=== PATIENT | female | born 1985 | race Caucasian/White ===

== ENCOUNTER 2017-09-22 17:46 | Emergency (ER) | payer BC, OTHER ==
[~2017-09-22] VITALS: Ht 175.3 cm; Wt 74.4 kg
[~2017-09-22 17:46] MED LIST: ACHYD1T PO; CITA40TA19 PO; CLC500CT PO; CTLP20T PO; DCS100C PO; DOCU100C37 PO; FAMO-119 PO; IBP800T PO; IBUP-1780 PO; ONDA8TAB9 PO; OXYC-465 PO; PREN1TAB71 PO
[2017-09-22] MEDS ORDERED: CITA20TA12 PO (18:05)
[2017-09-22] MEDS ORDERED: RT-ALBUTEROL SULF 2.5 MG/3 ML PRE-MIX VIAL INH STA (18:20)
[2017-09-22 18:33] LABS: BASOPHILS % (AUTO) 0 % (0-10); EOSINOPHILS % (AUTO) 0 % (0-10); HEMATOCRIT 32 % (35-52); HEMOGLOBIN 11.3 G/DL (11.5-16.0); LYMPHOCYTES # (AUTO) 1.4 X 10^3 (1.0-4.0); LYMPHOCYTES % (AUTO) 14 % (12-44); MEAN CORPUSCULAR HEMOGLOBIN 33 PG (25-34); MEAN CORPUSCULAR HGB CONC 35 G/DL (32-36); MEAN CORPUSCULAR VOLUME 93 FL (80-99); MONOCYTES # (AUTO) 0.8 X 10^3 (0.0-1.0); MONOCYTES % (AUTO) 8 % (0-12); NEUTROPHILS # (AUTO) 7.7 X 10^3 (1.8-7.8); NEUTROPHILS % (AUTO) 77 % (42-75); PLATELET COUNT 202 10^3/uL (130-400); RED BLOOD COUNT 3.47 10^6/uL (4.35-5.85)
--- NOTE | 2017-09-22 18:34 | ED General ---
General Chief Complaint: Respiratory Problems Stated Complaint: POSSIBLE PE, 34W Nursing Triage Note: PT REPORTS CHEST TIGHTNESS AND PAIN WITH INSPIRATION STARTING THURSDAY. PT REPORTS INITIALLY SHE THOUGHT SHE MIGHT BE GETTING A COLD. PT STATES SHE HAS SOA WITH EXERTION OR WALKING THAT SEEMS TO BE MORE THAN JUST NORMAL RELATED. PT REPORTS TODAY SHE CALLED DR KERNS OFFICE TODAY AND WAS TOLD TO GO TO ER TO GET CHECKED OUT. Nursing Sepsis Screen: No Definite Risk Source of Information: Patient Exam Limitations: No Limitations History of Present Illness Date Seen by Provider: Sep 22, 2017 Time Seen by Provider: 18:10 Initial Comments This 32-year-old woman at 34 weeks gestational age presents to the emergency room as referred by her general partner/industrial servicer for reasons of shortness of breath and chest discomfort on inspiration. She woke on Thursday feeling "achy in the chest". She developed shortness of breath and chest tightness with occasional cough. She also has a runny nose. She denies any fever. Thursday symptoms improved but then returned after that. She has dyspnea on exertion. She denies any history of lung problems such as asthma. Her discomfort is described as a tightness in his in the central chest. It is worsened by deep inspiration. She denies any wheezing. She has noted to have a raspy voice. She has had persistent edema of the lower extremities since about 23 weeks gestational age. This appears dependent and resolves when she lies down flat. The edema is equal and she denies any lower extremity pain, redness, heat. She notes a history of pericardial effusion after her last 4 years ago. She followed with Dr. Garcia for this pericardial effusion and had serial echocardiograms. She states that the effusion ultimately was inconsequential. Allergies and Home Medications Allergies Coded Allergies: Penicillins (Verified Allergy, Unknown, Hives, 05/03/15) Home Medications Citalopram Hydrobromide 20 Mg Tablet, 10 MG PO DAILY, (Reported) Nitrofurantoin Monohyd/M-Cryst 100 Mg Capsule, 1 TAB PO BID, #14 Prescribed by: BARBARA MARTÍNEZ on 09/22/172018 Vit/Fe Fumarate/Fa 1 Each Tablet, 1 EACH PO DAILY, (Reported) Constitutional: no symptoms reported EENTM: see HPI Respiratory: see HPI Cardiovascular: see HPI Gastrointestinal: no symptoms reported Genitourinary: no symptoms reported : Yes Musculoskeletal: no symptoms reported Skin: no symptoms reported Psychiatric/Neurological: No Symptoms Reported Hematologic/Lymphatic: No Symptoms Reported Immunological/Allergic: no symptoms reported Past Livleyr-Srvpwz-Yybbch Hx Patient Social History Alcohol Use: Denies Use Recreational Drug Use: No Smoking Status: Never a Smoker Recent Foreign Travel: No Contact w/Someone Who Travel: No Recent Infectious Disease Expo: No Immunizations Up To Date Tetanus Booster (TDap): Less than 5yrs PED Vaccines UTD: Yes Date of Influenza Vaccine: May 10, 2013 Surgeries History of Surgeries: Yes (Tubes in ears as , FILOPIAN TUBE REMOVED DUE TO TORSION) Respiratory History of Respiratory Disorde: No Cardiovascular History of Cardiac Disorders: Yes (history of pericardial effusion) Neurological History of Neurological Disord: No Reproductive System : Yes Hx Reproductive Disorders: No Sexually Transmitted Disease: No HIV/AIDS: No Female Reproductive Disorders: Ovarian Cyst Genitourinary History of Genitourinary Disor: Yes Genitourinary Disorders: UTI-Chronic Gastrointestinal History of Gastrointestinal Di: Yes Gastrointestinal Disorders: Gastroesophageal Reflux Musculoskeletal History of Musculoskeletal Dis: Yes Musculoskeletal Disorders: Scoliosis Endocrine History of Endocrine Disorders: No HEENT History of HEENT Disorders: No Cancer History of Cancer: No Psychosocial History of Psychiatric Problem: Yes Behavioral Health Disorders: Anxiety Integumentary History of Skin or Integumenta: No Blood Transfusions History of Blood Disorders: No Adverse Reaction to a Blood Tr: No Family Medical History Significant Family History: Hypertension, Other Conditions/Hx Family Medial History: Cancer Maternal Grandfather, Onset:50's - 60 Congestive heart failure Maternal Grandmother, Onset:60 years & older Family history: Diabetes mellitus Maternal Grandmother, Onset:60 years & older Family history: Gastrointestinal disease 03 FATHER, Onset:50's - 60 (Diverticulitis) Family history: Hypertension 03 FATHER, Onset:40's - 50 Paternal Grandmother Family history: Osteoporosis Maternal Grandmother Heart disease Maternal Grandmother (Has Pacemaker) Hypercholesterolemia 03 FATHER Paternal Grandmother No Family History of: Abdominal aortic aneurysm Conrad's disease Alcoholism Aphasia Cancer of colon Cataract Chest pain Congenital heart disease Cystic fibrosis Dementia Dysphagia Family history: Allergy Family history: Alzheimer's disease Family history: Arthritis Family history: Asthma Family history: Breast disease Family history: Cardiovascular disease Family history: Coronary thrombosis Family history: Glaucoma Family history: Thyroid disorder Headache Hearing loss Hereditary disease History of - anemia History of - respiratory disease History of drug abuse Human immunodeficiency virus (HIV) seropositivity Infertile Kidney disease Malignant neoplasm of lung Myocardial infarction Parkinson's disease Prostate cancer Psychotic disorder Seizure disorder Stroke Tuberculosis Visual impairment Physical Exam Vital Signs Vital Signs - First Documented 09/22/17 09/22/17 17:56 18:46 Temp 96.7 Pulse 80 Resp 20 B/P (MAP) 113/92 (99) Pulse Ox 100 O2 Delivery Room Air Capillary Refill : Less Than 3 Seconds General Appearance: No Apparent Distress, WD/WN HEENT: PERRL/EOMI, TMs Normal, Normal ENT Inspection, Pharynx Normal Neck: Normal Inspection Respiratory: Lungs Clear, Normal Breath Sounds, No Accessory Muscle Use, No Respiratory Distress, Other (no wheezing or delay with forced expiration) Cardiovascular: Regular Rate, Rhythm, No Edema, No Murmur Gastrointestinal: Normal Bowel Sounds, Soft, Distended (appropriately gravid for gestational age) Extremity: Non Tender, No Calf Tenderness, Swelling (mild edema equal bilaterally), Other (no heat, tenderness, or erythema. Negative Maggie.) Neurologic/Psychiatric: Alert, Oriented x3, No Motor/Sensory Deficits, Normal Mood/Affect, airplane inspector II-XII Norm as Tested Skin: Normal Color, Warm/Dry Progress/Results/Core Measures Suspected Sepsis Recent Fever Within 48 Hours: No Infection Criteria Present: None New/Unexplained Altered Menta: No Sepsis Screen: No Definite Risk Sepsis Diagnosis: SIRS Temperature:96.7 Pulse: 80 Respiratory Rate: 20 Laboratory Tests 09/22/17 18:19: White Blood Count 10.0 Blood Pressure 113 /92 Mean: 99 Laboratory Tests 09/22/17 18:19: Creatinine 0.60, Platelet Count 202, Total Bilirubin 0.6 Results/Orders Lab Results Laboratory Tests Test 09/22/17 18:19 09/22/17 19:19 Range/Units White Blood Count 10.0 4.3-11.0 10^3/uL Red Blood Count 3.47 L 4.35-5.85 10^6/uL Hemoglobin 11.3 L 11.5-16.0 G/DL Hematocrit 32 L 35-52 % Mean Corpuscular Volume 93 80-99 FL Mean Corpuscular Hemoglobin 33 25-34 PG Mean Corpuscular Hemoglobin Concent 35 32-36 G/DL Red Cell Distribution Width 13.0 10.0-14.5 % Platelet Count 202 130-400 10^3/uL Mean Platelet Volume 11.0 H 7.4-10.4 FL Neutrophils (%) (Auto) 77 H 42-75 % Lymphocytes (%) (Auto) 14 12-44 % Monocytes (%) (Auto) 8 0-12 % Eosinophils (%) (Auto) 0 0-10 % Basophils (%) (Auto) 0 0-10 % Neutrophils # (Auto) 7.7 1.8-7.8 X 10^3 Lymphocytes # (Auto) 1.4 1.0-4.0 X 10^3 Monocytes # (Auto) 0.8 0.0-1.0 X 10^3 Eosinophils # (Auto) 0.0 0.0-0.3 10^3/uL Basophils # (Auto) 0.0 0.0-0.1 10^3/uL Erythrocyte Sedimentation Rate 37 H 0-20 MM/HR Sodium Level 138 135-145 MMOL/L Potassium Level 3.9 3.6-5.0 MMOL/L Chloride Level 105 98-107 MMOL/L Carbon Dioxide Level 21 21-32 MMOL/L Anion Gap 12 5-14 MMOL/L Blood Urea Nitrogen 7 7-18 MG/DL Creatinine 0.60 0.60-1.30 MG/DL Estimat Glomerular Filtration Rate > 60 BUN/Creatinine Ratio 12 Glucose Level 71 70-105 MG/DL Calcium Level 9.7 8.5-10.1 MG/DL Magnesium Level 1.7 L 1.8-2.4 MG/DL Total Bilirubin 0.6 0.1-1.0 MG/DL Aspartate Amino Transf (AST/SGOT) 20 5-34 U/L Alanine Aminotransferase (ALT/SGPT) 15 0-55 U/L Alkaline Phosphatase 145 H 40-136 U/L C-Reactive Protein High Sensitivity 1.51 H 0.00-0.50 MG/DL B-Type Natriuretic Peptide < 10.0 <100.0 PG/ML Total Protein 6.5 6.4-8.2 GM/DL Albumin 3.3 3.2-4.5 GM/DL Urine Color YELLOW Urine Clarity CLEAR Urine pH 6.5 5-9 Urine Specific Baxter 1.015 L 1.016-1.022 Urine Protein NEGATIVE NEGATIVE Urine Glucose (UA) NEGATIVE NEGATIVE Urine Ketones 3+ H NEGATIVE Urine Nitrite NEGATIVE NEGATIVE Urine Bilirubin NEGATIVE NEGATIVE Urine Urobilinogen NORMAL NORMAL MG/DL Urine Leukocyte Esterase 2+ H NEGATIVE Urine RBC (Auto) NEGATIVE NEGATIVE Urine RBC NONE /HPF Urine WBC 5-10 H /HPF Urine Squamous Epithelial Cells 25-50 H /HPF Urine Crystals NONE /LPF Urine Bacteria FEW H /HPF Urine Casts NONE /LPF Urine Mucus NEGATIVE /LPF Urine Culture Indicated YES My Orders Orders - BARBARA MONTENEGRO MD BNP (09/22/17 18:20) Cbc With Automated Diff (09/22/17 18:20) Comprehensive Metabolic Panel (09/22/17 18:20) Hs C Reactive Protein (09/22/17 18:20) Magnesium (09/22/17 18:20) Ua Culture If Indicated (09/22/17 18:20) Erythrocyte Sedimentation Rate (09/22/17 18:20) Saline Lock/Iv-Start (09/22/17 18:20) Ekg Tracing (09/22/17 18:20) Chest Pa/Lat (2 View) (09/22/17 18:20) Albuterol Pre-Mix Nebs (Rt) (Proventil (09/22/17 18:20) Svn Sm Volume Nebulizer Rt-Rfs (09/22/17 18:20) Lidocaine 2% Viscous 15 Ml (Xylocaine Vi (09/22/17 19:30) Antacid Suspension (Mylanta Suspension (09/22/17 19:30) Urine Culture (09/22/17 19:19) Medications Given in ED Current Medications Medications Dose Ordered Sig/Jeannine Route Start Time Stop Time Status Last Admin Dose Admin Al Hydrox/Mg Hydrox/Simethicone 30 ml ONCE ONCE PO 09/22/17 19:30 09/22/17 19:31 DC 09/22/17 19:33 30 ML Lidocaine HCl 15 ml ONCE ONCE PO 09/22/17 19:30 09/22/17 19:31 DC 09/22/17 19:33 15 ML Vital Signs/I&O Vital Sign - Last 12Hours 09/22/17 09/22/17 09/22/17 17:56 18:46 20:28 Temp 96.7 96.7 Pulse 80 80 Resp 20 20 B/P (MAP) 113/92 (99) Pulse Ox 100 96 97 O2 Delivery Room Air Room Air Capillary Refill : Less Than 3 Seconds Blood Pressure Mean: 99 Progress Note : Progress Note Chest x-ray revealed no significant abnormalities. Labs were unremarkable except for minimal elevation in sedimentation rate. UA demonstrated ketones and subtle suggestion for UTI. Patient did report some discomfort with urination last week. Macrobid was prescribed for treatment of UTI. An albuterol treatment was given which minimally improved her chest tightness. Patient described problems with acid reflux and daily vomiting. She does take Pepcid most days. A GI cocktail was given which she states did help her chest tightness. EKG showed no significant abnormalities. I discussed further workup by d-dimer with patient and her . Suspicion for pulmonary embolus is very low as patient has no lower extremity exam findings consistent with DVT and no tachycardia or hypoxia. We discussed risks and benefits of further workup for pulmonary embolus. Patient and declined further workup at this time. They commits to returning if symptoms worsen. I suspect patient has a combination of URI and acid reflux contributing to her symptoms. ECG Initial ECG Impression Date: Sep 22, 2017 Initial ECG Impression Time: 18:53 Initial ECG Rate: 77 Initial ECG Rhythm: Normal Sinus Initial ECG Intervals: Normal Initial ECG Impression: Normal Comment Normal sinus rhythm with no ST elevation or depression. No abnormal intervals or axis deviation. Diagnostic Imaging Diagonstic Imaging: Xray Plain Films/CT/US/NM/MRI: chest Comments Chest x-ray viewed by me and report reviewed. See report below: NAME: SEEMA BELLE [facility] REC#: [id number] PT STATUS: REG ER : 1985 PHYSICIAN: BARBARA MONTENEGRO MD ADMIT DATE: 09/22/17/ER Draft Date of Exam:09/22/17 CHEST PA/LAT (2 VIEW) INDICATION: Chest tightness and pain during inspiration. TIME OF EXAM: 06:59 p.m. Correlation is made with prior study from 07/08/2013. FINDINGS: The heart size is stable. There is right convexity thoracic scoliotic curvature. The lungs are clear. No infiltrates are detected. No effusion or pneumothorax is seen. IMPRESSION: No acute cardiopulmonary process is detected. Dictated on workstation # [id number] Dict: 09/22/171901 Trans: 09/22/171904 [id number] Interpreted by: JAVI WESTNO MD Departure Impression Impression: Primary Impression: Chest discomfort Additional Impressions: GERD (gastroesophageal reflux disease) Qualified Codes: K21.9 - Gastro-esophageal reflux disease without esophagitis Upper respiratory infection Qualified Codes: J06.9 - Acute upper respiratory infection, unspecified Urinary tract infection Qualified Codes: N39.0 - Urinary tract infection, site not specified Disposition: HOME, SELF-CARE Condition: Improved Departure-Patient Inst. Referrals: XANDER SHEPARD MD (PCP) Primary Care Physician Patient Instructions: Chest Pain, Urinary Tract Infections in Adults Add. Discharge Instructions: Drink plenty of clear liquids. Complete your antibiotic as prescribed. Follow-up on urine culture results with Dr. Shepard or your primary care provider on Thursday. This will ensure you are taking an appropriate antibiotic for your bladder infection. Continue taking Pepcid twice daily. You may add Tums as well when you have heartburn. To reduce heartburn symptoms avoid the following: Eating large meals, eating close to bedtime, caffeine, carbonation, chocolate, mint, alcohol products, tobacco products, citrus fruits and juices, spicy foods, NSAID medications such as ibuprofen or naproxen, fatty or greasy foods, or anything else you know irritates your stomach. Elevating your head at bedtime may also help with acid reflux and heartburn. Continue to take Zofran as prescribed to reduce vomiting. Return to care if you have worsening symptoms. All discharge instructions reviewed with patient and/or family. Voiced understanding. Scripts Nitrofurantoin Monohyd/M-Cryst (Macrobid 100 mg Capsule) 100 Mg Capsule 1 TAB PO BID, #14 CAP Prov: BARBARA MONTENEGRO MD 09/22/17 Copy Copies To 1: XANDER SHEPARD MD, JOSHUA T MD Sep 22, 2017 18:34
[2017-09-22 18:47] LABS: ALANINE AMINOTRANSFERASE 15 U/L (0-55); ALBUMIN 3.3 GM/DL (3.2-4.5); ALKALINE PHOSPHATASE 145 U/L (40-136); BILIRUBIN,TOTAL 0.6 MG/DL (0.1-1.0); BUN/CREATININE RATIO 12; CALCIUM 9.7 MG/DL (8.5-10.1); CARBON DIOXIDE 21 MMOL/L (21-32); CHLORIDE 105 MMOL/L (98-107); GFR ESTIMATED > 60; GLUCOSE 71 MG/DL (70-105); MAGNESIUM 1.7 MG/DL (1.8-2.4); POTASSIUM 3.9 MMOL/L (3.6-5.0); SODIUM 138 MMOL/L (135-145); TOTAL PROTEIN 6.5 GM/DL (6.4-8.2)
[2017-09-22 18:57] LABS: ERYTHROCYTE SEDIMENTATION RATE 37 MM/HR (0-20)
--- NOTE | 2017-09-22 19:05 | Diagnostic Imaging Report ---
INDICATION: Chest tightness and pain during inspiration. TIME OF EXAM: 06:59 p.m. Correlation is made with prior study from 07/08/2013. FINDINGS: The heart size is stable. There is right convexity thoracic scoliotic curvature. The lungs are clear. No infiltrates are detected. No effusion or pneumothorax is seen. IMPRESSION: No acute cardiopulmonary process is detected. Dictated by: Dictated on workstation # [id number]
[2017-09-22 19:29] LABS: BILIRUBIN,URINE NEGATIVE (NEGATIVE); CLARITY,URINE CLEAR; COLOR,URINE YELLOW; GLUCOSE, URINE (UA) NEGATIVE (NEGATIVE); KETONES,URINE 3+ (NEGATIVE); LEUKOCYTE ESTERASE ,URINE 2+ (NEGATIVE); NITRITE,URINE NEGATIVE (NEGATIVE); PH,URINE 6.5 (5-9); PROTEIN,URINE NEGATIVE (NEGATIVE); UROBILINOGEN,URINE NORMAL (NORMAL)
[2017-09-22] MEDS ORDERED: LIDOCAINE 2% VISCOUS 15 ML UDC PO ONE (19:30)
[2017-09-22] MEDS ORDERED: ANTACID SUSP 30 ML UDC (MYLANTA) PO ONE (19:30)
[2017-09-22 19:37] LABS: BACTERIA,URINE FEW /HPF; SQUAMOUS EPITHELIAL CELL,UR 25-50 /HPF
[2017-09-22] MEDS ORDERED: NITR-65 PO (20:19)
[2017-09-22 20:28] VITALS: BP 114/80
--- OUTSIDE RECORDS SUMMARY | 2017-09-25 08:04 | XMS REPORT | Continuity of Care Document ---
Author Author [facility] Organization [facility] Address Unknown Phone Unavailable Allergies Active Description Code Type Severity Reaction Onset Reported/Identified Relationship to Patient Clinical Status Yes Penicillins [id number] Drug Allergy Unknown Hives 05/03/2015 Medications There is no data. Problems Date Dx Coded Attending Type Code Diagnosis Diagnosed By 07/06/2013 XANDER YEN MD, Ot 663.31 CORD ENTANGLE NEC-DELIV 07/06/2013 XANDER YEN MD, Ot V06.1 [id number], COMBINED [ 07/06/2013 XANDER YEN MD, Ot V27.0 DELIVER-SINGLE LIVEBORN 07/08/2013 JOSE SHANE MD Ot 300.00 ANXIETY STATE NOS 07/08/2013 JOSE SHANE MD Ot 785.1 PALPITATIONS 12/04/2014 GARRET DA SILVA MD Ot 300.00 12/04/2014 GARRET DA SILVA MD Ot 427.69 12/04/2014 GARRET DA SILVA MD Ot 785.1 12/04/2014 GARRET DA SILVA MD Ot 786.50 05/03/2015 XANDER YEN MD, Ot V22.2 PREG STATE, INCIDENTAL 05/03/2015 XANDER YEN MD, Ot V71.4 OBSERV-ACCIDENT NEC 06/23/2015 XANDER YEN MD, Ot O69.81X0 LABOR AND DEL COMP BY CORD AROUND NECK, 06/23/2015 XANDER YEN MD, Ot Z23 ENCOUNTER FOR IMMUNIZATION 06/23/2015 XANDER YEN MD, Ot Z37.0 SINGLE LIVE 06/23/2015 XANDER YEN MD, Ot Z3A.38 38 WEEKS GESTATION OF 06/25/2015 XANDER YEN MD, Ot 719.47 06/25/2015 XANDER YEN MD Ot 729.81 06/25/2015 REKHA HUSSEIN, GARRET Adam Ot 300.00 06/25/2015 REKHA HUSSEIN, GARRET Adam Ot 427.69 06/25/2015 REKHA HSUSEIN, GARRET Adam Ot 427.89 06/25/2015 REKHA HUSSEIN, GARRET Adam Ot 785.1 06/25/2015 GARRET DA SILVA MD Ot 786.50 06/25/2015 REKHA HUSSEIN, GARRET Adam Ot 397.0 06/25/2015 REKHA HUSSEIN, GARRET Adam Ot 424.0 06/25/2015 REKHA HUSSEIN, GARRET Adam Ot 427.69 06/25/2015 GARRET DA SILVA MD Ot 785.1 06/25/2015 GARRET DA SILVA MD Ot 786.50 06/25/2015 RIA PA, YEIMY K Ot 300.00 06/25/2015 RIA PA, YEIMY K Ot 397.0 06/25/2015 RIA PA, YEIMY K Ot 423.9 06/25/2015 RIA PA, YEIMY K Ot 424.0 06/25/2015 RIA PA, YEIMY K Ot 427.69 06/25/2015 RIA PA, YEIMY K Ot 785.1 06/25/2015 GARRET DA SILVA MD Ot 300.00 06/25/2015 GARRET DA SILVA MD Ot 427.69 06/25/2015 GARRET DA SILVA MD Ot 785.1 06/25/2015 GARRET DA SILVA MD Ot 786.50 11/21/2015 XANDER YEN MD Ot 719.47 11/21/2015 XANDER YEN MD Ot 729.81 11/21/2015 GRARET DA SILVA MD Ot 300.00 11/21/2015 GARRET DA SILVA MD Ot 427.69 11/21/2015 GARRET DA SILVA MD Ot 427.89 11/21/2015 GARRET DA SILVA MD Ot 785.1 11/21/2015 GARRET DA SILVA MD Ot 786.50 11/21/2015 GARRET DA SILVA MD Ot 397.0 11/21/2015 GARRET DA SILVA MD Ot 424.0 11/21/2015 REKHA HUSSEIN, GARRET Adam Ot 427.69 11/21/2015 GARRET DA SILVA MD Ot 785.1 11/21/2015 GARRET DA SILVA MD Ot 786.50 11/21/2015 RIA PA, YEIMY K Ot 300.00 11/21/2015 RIA PA, YEIMY K Ot 397.0 11/21/2015 RIA PA, YEIMY K Ot 423.9 11/21/2015 JIMENES-TYLER PA, YEIMY K Ot 424.0 11/21/2015 YUDY-TYELR PA, YEIMY K Ot 427.69 11/21/2015 YUDY-TYLER PA, YEIMY K Ot 785.1 11/21/2015 GARRET DA SILVA MD Ot 300.00 11/21/2015 GARRET DA SILVA MD Ot 427.69 11/21/2015 GARRET DA SILVA MD Ot 785.1 11/21/2015 GARRET DA SILVA MD Ot 786.50 11/25/2015 XANDER YEN MD Ot N83.52 TORSION OF FALLOPIAN TUBE 11/25/2015 XANDER YEN MD Ot N83.8 OTH NONINFLAMMATORY DISORD OF OVARY, FAL 11/26/2015 XANDER YEN MD Ot N83.52 TORSION OF FALLOPIAN TUBE 11/26/2015 XANDER YEN MD Ot N83.8 OTH NONINFLAMMATORY DISORD OF OVARY, FAL 11/27/2015 XANDER YEN MD Ot N83.52 TORSION OF FALLOPIAN TUBE 11/27/2015 XANDER YEN MD Ot N83.8 OTH NONINFLAMMATORY DISORD OF OVARY, FAL 12/01/2015 XANDER YEN MD Ot N83.52 TORSION OF FALLOPIAN TUBE 12/01/2015 XANDER YEN MD Ot N83.8 OTH NONINFLAMMATORY DISORD OF OVARY, FAL 12/03/2015 XANDER YEN MD Ot 719.47 JOINT PAIN-ANKLE 12/03/2015 XANDER YEN MD Ot 729.81 SWELLING OF LIMB 12/03/2015 GARRET DA SILVA MD Ot 300.00 ANXIETY STATE NOS 12/03/2015 GARRET DA SILVA MD Ot 427.69 PREMATURE BEATS NEC 12/03/2015 GARRET DA SILVA MD Ot 427.89 CARDIAC DYSRHYTHMIAS NEC 12/03/2015 GARRET DA SILVA MD Ot 785.1 PALPITATIONS 12/03/2015 GARRET DA SILVA MD Ot 786.50 CHEST PAIN NOS 12/03/2015 GARRET DA SILVA MD Ot 397.0 TRICUSPID VALVE DISEASE 12/03/2015 GARRET DA SILVA MD Ot 424.0 MITRAL VALVE DISORDER 12/03/2015 GARRET DA SILVA MD Ot 427.69 PREMATURE BEATS NEC 12/03/2015 GARRET DA SILVA MD Ot 785.1 PALPITATIONS 12/03/2015 GARRET DA SILVA MD Ot 786.50 CHEST PAIN NOS 12/03/2015 YEIMY RAJPUT Ot 300.00 ANXIETY STATE NOS 12/03/2015 YEIMY RAJPUT Ot 397.0 TRICUSPID VALVE DISEASE 12/03/2015 YEIMY RAJPUT Ot 423.9 PERICARDIAL DISEASE NOS 12/03/2015 YEIMY RAJPUT Ot 424.0 MITRAL VALVE DISORDER 12/03/2015 YEIMY RAJPUT Ot 427.69 PREMATURE BEATS NEC 12/03/2015 YEIMY RAJPUT Ot 785.1 PALPITATIONS 12/03/2015 GARRET DA SILVA MD Ot 300.00 ANXIETY STATE NOS 12/03/2015 GARRET DA SILVA MD Ot 427.69 PREMATURE BEATS NEC 12/03/2015 GARRET DA SILVA MD Ot 785.1 PALPITATIONS 12/03/2015 GARRET DA SILVA MD Ot 786.50 CHEST PAIN NOS 12/11/2015 XANDER YEN MD Ot N83.52 TORSION OF FALLOPIAN TUBE 12/11/2015 XANDER YEN MD Ot N83.8 OTH NONINFLAMMATORY DISORD OF OVARY, FAL 06/26/2016 XANDER YEN MD Ot 719.47 JOINT PAIN-ANKLE 06/26/2016 FARSHAD HUSSEIN, XANDER Dias Ot 729.81 SWELLING OF LIMB 06/26/2016 GARRET DA SILVA MD Ot 300.00 ANXIETY STATE NOS 06/26/2016 GARRET DA SILVA MD Ot 427.69 PREMATURE BEATS NEC 06/26/2016 GARRET DA SILVA MD Ot 427.89 CARDIAC DYSRHYTHMIAS NEC 06/26/2016 GARRET DA SILVA MD Ot 785.1 PALPITATIONS 06/26/2016 GARRET DA SILVA MD Ot 786.50 CHEST PAIN NOS 06/26/2016 GARRET DA SILVA MD Ot 397.0 TRICUSPID VALVE DISEASE 06/26/2016 GARRET DA SILVA MD Ot 424.0 MITRAL VALVE DISORDER 06/26/2016 GARRET DA SILVA MD Ot 427.69 PREMATURE BEATS NEC 06/26/2016 GARRET DA SILVA MD Ot 785.1 PALPITATIONS 06/26/2016 GARRET DA SILVA MD Ot 786.50 CHEST PAIN NOS 06/26/2016 YEIMY RAJPUT Ot 300.00 ANXIETY STATE NOS 06/26/2016 YEIMY RAJPUT Ot 397.0 TRICUSPID VALVE DISEASE 06/26/2016 YEIMY RAJPUT Ot 423.9 PERICARDIAL DISEASE NOS 06/26/2016 YEIMY RAJPUT Ot 424.0 MITRAL VALVE DISORDER 06/26/2016 YEIMY RAJPUT Ot 427.69 PREMATURE BEATS NEC 06/26/2016 YEIMY RAJPUT Ot 785.1 PALPITATIONS 06/26/2016 GARRET DA SILVA MD Ot 300.00 ANXIETY STATE NOS 06/26/2016 GARRET DA SILVA MD Ot 427.69 PREMATURE BEATS NEC 06/26/2016 GARRET DA SILVA MD Ot 785.1 PALPITATIONS 06/26/2016 GARRET DA SILVA MD Ot 786.50 CHEST PAIN NOS Procedures Code Description Performed By Performed On 73.4 MEDICAL INDUCTION LABOR 07/04/2013 73.59 MANUAL ASSIST DELIV NEC 07/04/2013 [id number] DELIVERY OF PRODUCTS OF CONCEPTION, EXTE 06/22/2015 Results There is no data. Encounters ACCT No. Visit Date/Time Discharge Status Pt. Type Provider Facility Loc./Unit Complaint [id number] 11/24/2015 20:40:00 11/25/2015 10:20:00 DIS Outpatient XANDER YEN MD [facility] SDC TORSION OF LEFT OVARY [id number] 06/22/2015 16:53:00 06/23/2015 08:45:00 DIS Inpatient XANDER YEN MD [facility] LDRP LABOR [id number] 05/03/2015 10:21:00 05/03/2015 15:26:00 DIS Outpatient XANDER YEN MD [facility] WSo PT FELL LAST NIGHT [id number] 11/16/2014 10:01:00 11/16/2014 23:59:59 CLS Outpatient GARRET DA SILVA MD [facility] CARD CP [id number] 03/15/2014 09:52:00 03/15/2014 23:59:59 CLS Outpatient YEIMY RAJPUT [facility] CARD PALPITATIONS ,ANXIETY [id number] 11/23/2013 09:40:00 11/23/2013 23:59:59 CLS Outpatient GARRET DA SILVA MD [facility] CARD ANXIETY,CP,PVC [id number] 08/16/2013 07:39:00 08/16/2013 23:59:59 CLS Outpatient GARRET DA SILVA MD [facility] CARD CP, CARDIAC DYSRHYTHMIAS , HEART PALPATATIONS [id number] 07/08/2013 15:55:00 07/08/2013 18:40:00 DIS Emergency JOSE SHANE MD [facility] ER RAPID HEART RATE [id number] 07/04/2013 06:59:00 07/06/2013 11:00:00 DIS Inpatient XANDER YEN MD [facility] WS INDUCTION [id number] 03/17/2013 13:57:00 03/17/2013 23:59:59 CLS Outpatient XANDER YEN MD [facility] RAD RT ANKLE PAIN, BILAT LOWER EXT SWELLING [id number] 05/03/2015 14:05:00 Document Registration
== END 2017-09-22 20:27 | disposition home or self-care (01) ==
LOC: EDUNIT# 17:46 → ER 17:47
DX: O99.89 Other specified diseases and conditions complicating pregnancy, childbirth and the puerperium (principal); R07.89 Other chest pain; O99.513 Diseases of the respiratory system complicating pregnancy, third trimester; J06.9 Acute upper respiratory infection, unspecified; O23.40 Unspecified infection of urinary tract in pregnancy, unspecified trimester; O99.613 Diseases of the digestive system complicating pregnancy, third trimester; K21.9 Gastro-esophageal reflux disease without esophagitis; O99.343 Other mental disorders complicating pregnancy, third trimester; F41.9 Anxiety disorder, unspecified; Z82.49 Family history of ischemic heart disease and other diseases of the circulatory system; Z3A.34 34 weeks gestation of pregnancy; Z88.0 Allergy status to penicillin; Z87.448 Personal history of other diseases of urinary system
CPT/HCPCS: 36415; 71046; 80053; 81000; 83735; 83880; 85025; 85652; 86141; 87088; 93005; 94640

== ENCOUNTER 2017-10-30 07:00 | Inpatient (IN) | payer OTHER ==
[~2017-10-30] VITALS: Ht 175.3 cm; Wt 70.3 kg
[2017-10-30] VITALS (37 sets, daily range): BP systolic 101–129; BP diastolic 58–81
[~2017-10-30 07:00] MED LIST changes: +CITA20TA12 PO; +NITR-65 PO
[2017-10-30] MEDS ORDERED: D5 LR IV SOLUTION 1,000 ML IV SCH ×2 (07:57→08:13)
[2017-10-30 08:06] LABS: BASOPHILS % (AUTO) 0 % (0-10); EOSINOPHILS # (AUTO) 0.1 10^3/uL (0.0-0.3); EOSINOPHILS % (AUTO) 1 % (0-10); HEMATOCRIT 35 % (35-52); LYMPHOCYTES # (AUTO) 1.7 X 10^3 (1.0-4.0); LYMPHOCYTES % (AUTO) 17 % (12-44); MEAN CORPUSCULAR HEMOGLOBIN 33 PG (25-34); MEAN CORPUSCULAR HGB CONC 35 G/DL (32-36); MEAN CORPUSCULAR VOLUME 94 FL (80-99); MEAN PLATELET VOLUME 11.4 FL (7.4-10.4); MONOCYTES # (AUTO) 0.7 X 10^3 (0.0-1.0); MONOCYTES % (AUTO) 7 % (0-12); NEUTROPHILS # (AUTO) 7.2 X 10^3 (1.8-7.8); NEUTROPHILS % (AUTO) 75 % (42-75); PLATELET COUNT 202 10^3/uL (130-400); RED BLOOD COUNT 3.68 10^6/uL (4.35-5.85); RED CELL DISTRIBUTION WIDTH 13.1 % (10.0-14.5); WHITE BLOOD COUNT 9.6 10^3/uL (4.3-11.0)
[2017-10-30] MEDS ORDERED: OXYTOCIN/NORMAL SALINE 500 ML IV SCH ×3 (08:11→08:14)
--- NOTE | 2017-10-30 08:13 | History & Physical ---
History and Physical Date Seen by Provider: Oct 30, 2017 Time Seen by Provider: 08:10 This patient is a 35-year-old white female with a due date of November 02, 2017 pressing her now at 39-4/7 weeks' gestation. She is admitted for labor induction. She's had no problems with this . Her GBS culture was negative. Allergies are to Macrobid which causes a rash Medications are vitamins and Zofran when necessary Medical social and surgical histories are per the antepartum record HEENT exam is normal Neck is supple no lymphadenopathy no thyromegaly Abdomen is gravid soft nontender nondistended Extremities show clubbing cyanosis. There is no Homans sign. Shows a cervix 4 cm dilated over 50 percent effaced and 0 to -1 station vertex presentation very soft anterior cervix placed her with the Guy score of over 8. Assessment and plan 39-4/7 weeks' gestation with a very favorable cervix patient admitted for induction of labor expectation is for vaginal delivery Allergies and Home Medications Allergies Coded Allergies: Penicillins (Verified Allergy, Unknown, Hives, 05/03/15) Home Medications Citalopram Hydrobromide 20 Mg Tablet, 10 MG PO DAILY, (Reported) Nitrofurantoin Monohyd/M-Cryst 100 Mg Capsule, 1 TAB PO BID Prescribed by: BARBARA MARTÍNEZ on 09/22/172018 Vit/Fe Fumarate/Fa 1 Each Tablet, 1 EACH PO DAILY, (Reported) Patient Home Medication List Home Medication List Reviewed: Yes XANDER YEN MD Oct 30, 2017 8:13 am
[2017-10-30] MEDS ORDERED: oxyCODONE/APAP 10/325MG (PERCOCET 10) TABLET PO PRN (08:15)
[2017-10-30] MEDS ORDERED: ONDANSETRON 4 MG/2 ML (SDV) Z0FRAN IVP PRN (08:15)
[2017-10-30] MEDS ORDERED: MEASLES,MUMPS,RUBELLA 1 EA INJ SC ONE (08:15)
[2017-10-30] MEDS ORDERED: TETANUS,DIPTH,PERTUSS P/F (BOOSTRIX) 0.5 ML VIAL IM ONE (08:15)
[2017-10-30] MEDS ORDERED: BENZOCAINE/MENTHOL (DERMOPLAST) 56 ML CAN TP PRN (08:15)
[2017-10-30] MEDS ORDERED: SUFENTA 0.6MCG/ML BUPIVA 0.125 100 ML ONE (11:36)
[2017-10-30] MEDS ORDERED: fentaNYL INJECTION 100 MCG/2 ML AMP ONE (11:58)
[2017-10-30] MEDS ORDERED: BUPIVACAINE 0.25% 30 ML (SENSORCAINE) VIAL ONE (11:58)
[2017-10-30] MEDS ORDERED: LIDOCAINE PF 2% 5 ML (XYLOCAINE) VIAL ONE (11:58)
[2017-10-30] MEDS ORDERED: LACTATED RINGERS 1,000 ML IV SCH (12:27)
[2017-10-30] MEDS ORDERED: ONDANSETRON 4 MG/2 ML (SDV) Z0FRAN IV PRN (12:30)
[2017-10-30] MEDS ORDERED: diphenhydrAMINE 50 MG/ML INJ (BENADRYL) IV PRN (12:30)
[2017-10-30] MEDS ORDERED: EPIDURAL (SUFENTA 0.6MCG/ML BUPIVA 0.125%) 100 ML BAG EPI PRN (12:30)
[2017-10-30] MEDS ORDERED: NALOXONE 0.4 MG/ML 1 ML (NARCAN) VIAL IV PRN (12:30)
[2017-10-30] MEDS ORDERED: CATHETER FLUSH 10 ML SYR IV SCH (14:00)
[2017-10-30] MEDS ORDERED: INFLUENZA TRIvalent 2017-2018 0.5 ML/45 MCG SYR IM ONE (16:00)
[2017-10-30] MEDS ORDERED: IBUP-1780 PO (17:15)
[2017-10-30] MEDS ORDERED: DOCU100C37 PO (17:15)
[2017-10-30] MEDS ORDERED: OXYC-465 PO (17:15)
--- NOTE | 2017-10-30 17:17 | Discharge Instructions ---
Discharge Instructions Discharge Medications New, Converted or Re-Newed RX: RX on Chart Patient Instructions Patient Instructions: As directed Return to The Hospital For: As directed Activity & Diet Discharge Diet: No Restrictions Activity as Tolerated: No Orders-Post D/C & Referrals Follow Up Appt: Call to make follow up appt. for patient in 4 weeks. Activity Per routine post vaginal delivery instructions. Please call in RX to patient pharmacy. Diet as tolerated Patient may shower or tub bathe as desired. XANDER YEN MD Oct 30, 2017 5:17 pm
[2017-10-30] MEDS: KETOROLAC 30 MG/ML VIAL IV SCH (17:48)
--- NOTE | 2017-10-30 20:22 | Anesthesia-Regional Post-Op ---
Regional Patient Condition Mental Status: Alert, Oriented x3 Circulation: Same as Pre-Op Headache: Absent Sensation: Full Recovery Motor Block: Absent Post Op Complications Complications None Follow Up Care/Instructions Patient Instructions None needed. Anesthesia/Patient Condition Patient is doing well, no complaints, stable vital signs, no apparent adverse anesthesia problems. No complications reported per nursing. MINDA ANDINO CRNA Oct 30, 2017 20:22
[2017-10-30] MEDS: DOCUSATE SODIUM 100 MG (COLACE) CAP PO SCH (21:23)
[2017-10-31 00:04] VITALS: BP 108/71
[2017-10-31] MEDS: KETOROLAC 30 MG/ML VIAL IV SCH (00:04)
--- NOTE | 2017-10-31 01:59 | OPERATIVE REPORT ---
DATE OF SERVICE: 10/30/2017 DELIVERY NOTE The patient delivered by term spontaneous vaginal delivery a viable female infant with Apgars of 7 and 8 at 1 and 5 minutes respectively. Weight was 7 pounds 4 ounces, time was 12:58. The delivery was accomplished over an intact perineum under epidural analgesia. The was bulb suctioned on delivery of the head and again on completion of delivery. The umbilical cord was doubly clamped and the patient's cut the cord. The baby was passed to mom's abdomen. The placenta was delivered promptly spontaneously [place]. It was normal with a 3-vessel cord. The cervix, vagina, rectum and perineum were examined and found intact. Sponge and needle counts were correct on completion of delivery. Estimated blood loss after a short period of recovery where there were some episodes of uterine atony with a total of 450 mL. The uterus eventually had contracted down nicely and blood loss was minimal from that point on. The patient tolerated the delivery well and was recovered in the LDR. The baby remained with the mom. Job ID: [id number] DocumentID: [id number] Dictated Date: 10/30/2017 16:11:53 Health Outreach Worker Date: 10/30/2017 21:01:46 Dictated By: XANDER YEN MD
[2017-10-31 04:15] VITALS: BP 111/69
[2017-10-31] MEDS: IBUPROFEN 800 MG (MOTRIN) TAB PO SCH ×3 (05:36→21:13)
[2017-10-31 07:51] VITALS: BP 112/72
--- NOTE | 2017-10-31 08:13 | Progress Note-Standard ---
Standard Progress Note Progress Notes/Assess & Plan Date Seen by Provider: Oct 31, 2017 Time Seen by Provider: 08:12 Progress/Assessment & Plan This patient is without complaint. She is ambulating, voiding, tolerating oral intake well, has good pain control. Vital Signs Date Time Temp Pulse Resp B/P (MAP) Pulse Ox O2 Delivery O2 Flow Rate FiO2 10/31/17 07:51 97.6 82 18 112/72 (85) 99 Room Air 10/31/17 04:15 97.0 63 18 111/69 (83) 98 Room Air 10/31/17 00:04 98.2 63 18 108/71 (83) 97 Room Air 10/30/17 19:45 98.9 54 18 101/64 (76) Room Air 10/30/17 10:15 71 20 112/74 (87) Room Air 10/30/17 10:00 78 18 115/79 (91) Room Air 10/30/17 09:45 7 18 115/78 (90) Room Air 10/30/17 09:30 77 20 114/75 (88) Room Air 10/30/17 09:15 79 18 115/80 (92) Room Air 10/30/17 09:10 75 18 114/75 (88) Room Air 10/30/17 08:55 74 18 114/74 (87) Room Air 10/30/17 08:35 87 18 112/80 (91) Room Air 10/30/17 08:25 91 20 110/77 (88) Room Air I & O 10/31/17 07:00 Intake Total 500 ml Balance 500 ml Vital signs are stable. Patient is afebrile. Fundus is firm below the umbilicus nontender. Extreme show no clubbing cyanosis. There is no Homans sign. Assessment and plan day number 1 doing well. Plan is for routine convalescence care today and likely discharge home tomorrow XANDER YEN MD Oct 31, 2017 8:13 am
[2017-10-31 12:20] VITALS: BP 99/68
[2017-10-31] MEDS: DOCUSATE SODIUM 100 MG (COLACE) CAP PO SCH ×2 (12:20→21:13)
[2017-10-31 15:08] VITALS: BP 110/69
[2017-10-31 21:10] VITALS: BP 106/67
[2017-11-01] MEDS: IBUPROFEN 800 MG (MOTRIN) TAB PO SCH ×2 (02:57→09:22)
[2017-11-01] MEDS ORDERED: TETANUS,DIPTH,PERTUSS P/F (BOOSTRIX) 0.5 ML VIAL IM ONE (09:04)
[2017-11-01] MEDS: DOCUSATE SODIUM 100 MG (COLACE) CAP PO SCH (09:22)
--- NOTE | 2017-11-01 09:23 | Progress Note-Standard ---
Standard Progress Note Progress Notes/Assess & Plan Date Seen by Provider: Nov 01, 2017 Time Seen by Provider: 09:22 Progress/Assessment & Plan This patient is without complaint. She is ambulating, voiding, tolerating oral intake well, has good pain control. Vital Signs Date Time Temp Pulse Resp B/P (MAP) Pulse Ox O2 Delivery O2 Flow Rate FiO2 10/31/17 07:51 97.6 82 18 112/72 (85) 99 Room Air 10/31/17 04:15 97.0 63 18 111/69 (83) 98 Room Air 10/31/17 00:04 98.2 63 18 108/71 (83) 97 Room Air 10/30/17 19:45 98.9 54 18 101/64 (76) Room Air 10/30/17 10:15 71 20 112/74 (87) Room Air 10/30/17 10:00 78 18 115/79 (91) Room Air 10/30/17 09:45 7 18 115/78 (90) Room Air 10/30/17 09:30 77 20 114/75 (88) Room Air 10/30/17 09:15 79 18 115/80 (92) Room Air 10/30/17 09:10 75 18 114/75 (88) Room Air 10/30/17 08:55 74 18 114/74 (87) Room Air 10/30/17 08:35 87 18 112/80 (91) Room Air 10/30/17 08:25 91 20 110/77 (88) Room Air I & O 10/31/17 07:00 Intake Total 500 ml Balance 500 ml Vital signs are stable. Patient is afebrile. Fundus is firm below the umbilicus nontender. Extreme show no clubbing cyanosis. There is no Homans sign. Assessment and plan day number 1 doing well. Plan is for routine convalescence care today and likely discharge home tomorrow November 01, 2017 Patient without complaint. She is ambulating, voiding, tolerating by mouth, has good pain control, and is requesting discharge home. Vital Signs Date Time Temp Pulse Resp B/P (MAP) Pulse Ox O2 Delivery O2 Flow Rate FiO2 10/31/17 21:10 98.0 53 18 106/67 (80) 99 Room Air 10/31/17 15:08 98.8 72 18 110/69 (83) 97 Room Air 10/31/17 12:20 98.2 81 18 99/68 (78) 99 Room Air Signs are stable. Patient is afebrile. Fundus is firm below the umbilicus and nontender. Extremities show no clubbing cyanosis. There is no Homans sign. Assessment and plan day number 2 status post term spontaneous vaginal delivery doing well. Plan is to discharge home with follow-up in clinic XANDER YEN MD Nov 01, 2017 9:22 am
[2017-11-01 09:25] VITALS: BP 108/72
== END 2017-11-01 12:36 | disposition home or self-care (01) | DRG 774 ==
LOC: LDRP 07:05
PROVIDERS: ADMIT Obstetrics & Gynecology; ATTEND Obstetrics & Gynecology
PROC: 10E0XZZ Delivery of Products of Conception, External Approach (ICD-10-PCS; principal; 2017-10-30)
DX: O72.1 Other immediate postpartum hemorrhage (principal); Z3A.39 39 weeks gestation of pregnancy; Z37.0 Single live birth; Z23 Encounter for immunization
CPT/HCPCS: 36415; 85025; 86850; 86900; 86901; 90715

== ENCOUNTER → 2019-06-16 | Outpatient (CLI) | payer OTHER ==
[~2019-06-16] MED LIST changes: +CATHETER FLUSH 10 ML SYR IV PRN; +HOLD METFORMIN - RECEIVED CONTRAST 20 ML VIAL IV SCH; +IOHEXOL 350 MG/ML 100 ML (OMNIPAQUE 350) VIAL IV ONE; +NS 100 ML (IVPB) BAG IV ONE
--- NOTE | 2019-06-16 13:40 | Diagnostic Imaging Report ---
PROCEDURE: CT abdomen and pelvis with and without contrast. TECHNIQUE: Precontrast acquisitions were acquired through the abdomen and pelvis. Multiple contiguous axial images were obtained through the abdomen and pelvis after the administration of intravenous contrast. Auto Exposure Controls were utilized during the CT exam to meet ALARA standards for radiation dose reduction. INDICATION: Right lower quadrant palpable area of concern. COMPARISON: 11/24/2015. FINDINGS: Included portions of the lung bases are clear. CT abdomen: Normal appendix is identified. Small bowel loops are nondistended. The kidneys, adrenal glands, spleen, and pancreas have a normal CT appearance. There is a small cyst within the dome of segment 4A of the liver. Otherwise, liver has a normal CT appearance as well. There is no loculated fluid collection, free fluid, or free air within the abdomen. No abnormal mesenteric or retroperitoneal adenopathy is seen. There is mild calcified aortic atherosclerosis. Osseous structures show no acute abnormalities. CT pelvis: Surgical suture material is noted within the left adnexa. Urinary bladder is grossly unremarkable. There is no loculated fluid collection, free fluid, or free air within the pelvis. No abnormal adenopathy is seen. Osseous structures show no acute abnormalities. IMPRESSION: 1. Unremarkable CT of the abdomen and pelvis. Dictated by: Dictated on workstation # [id number]
== END ==
LOC: RAD 12:41
PROVIDERS: ATTEND Obstetrics & Gynecology
DX: R10.31 Right lower quadrant pain (principal); R19.00 Intra-abdominal and pelvic swelling, mass and lump, unspecified site
CPT/HCPCS: 74178

== ENCOUNTER 2020-08-31 10:23 | Inpatient (IN) | payer OTHER ==
[2020-08-31] VITALS (26 sets, daily range): BP systolic 111–134; BP diastolic 66–93
[~2020-08-31] VITALS: Ht 175.3 cm; Wt 78.4 kg
--- NOTE | 2020-08-31 10:17 | NUR ---
SEEMA BELLE admitted to room 3320-1, with an admitting diagnosis of labor, on 08/31/[address] office via private car, ambulated to OB, accompanied by self.SEEMA BELLE introduced to surroundings, call light, bed controls, phone, TV, temperature control, lights, meal times, smoking policy, visitor policy, side rail policy, bathrooms and showers. Patient Rights given to patient in the handbook. SEEMA BELLE verbalizes understanding that [facility] is not responsible for the loss or damage to any personal effects or valuables that are kept in the patients posession during their hospitalization. The following Patient Care Plans were discussed with the patient: Discharge Planning, pain management, oxytocin protocol, and care. SEEMA BELLE verbalizes understanding of Interdisciplinary Patient Education. Patient and/or family were informed about the Rapid Response Team and its purpose.
[~2020-08-31 10:23] MED LIST changes: -CATHETER FLUSH 10 ML SYR IV PRN; -HOLD METFORMIN - RECEIVED CONTRAST 20 ML VIAL IV SCH; -IOHEXOL 350 MG/ML 100 ML (OMNIPAQUE 350) VIAL IV ONE; -NS 100 ML (IVPB) BAG IV ONE; -OXYC-465 PO; +OXYC-556 PO
[2020-08-31 11:26] LABS: BASOPHILS % (AUTO) 0 % (0-10); EOSINOPHILS % (AUTO) 0 % (0-10); HEMATOCRIT 37 % (35-52); HEMOGLOBIN 12.6 g/dL (11.5-16.0); LYMPHOCYTES # (AUTO) 1.3 10^3/uL (1.0-4.0); LYMPHOCYTES % (AUTO) 14 % (12-44); MEAN CORPUSCULAR HEMOGLOBIN 32 pg (25-34); MEAN CORPUSCULAR HGB CONC 34 g/dL (32-36); MEAN CORPUSCULAR VOLUME 93 fL (80-99); MEAN PLATELET VOLUME 11.2 fL (9.0-12.2); MONOCYTES # (AUTO) 0.4 10^3/uL (0.0-1.0); MONOCYTES % (AUTO) 5 % (0-12); NEUTROPHILS # (AUTO) 7.5 10^3/uL (1.8-7.8); NEUTROPHILS % (AUTO) 81 % (42-75); PLATELET COUNT 225 10^3/uL (130-400); WHITE BLOOD COUNT 9.3 10^3/uL (4.3-11.0)
[2020-08-31] MEDS ORDERED: D5 LR IV SOLUTION 1,000 ML IV SCH (11:30)
[2020-08-31] MEDS ORDERED: OXYTOCIN PRE-MIX DRIP 500 ML IV SCH ×3 (11:30→19:00)
[2020-08-31] MEDS ORDERED: LIDOCAINE/EPI 2% 1:200,00 (XYLOCAINE) 10 ML VIAL INJ PRN (11:30)
[2020-08-31] MEDS ORDERED: CATHETER FLUSH 10 ML SYR IV SCH (14:00)
--- NOTE | 2020-08-31 14:14 | History & Physical ---
History and Physical Date Seen by Provider: Aug 31, 2020 Time Seen by Provider: 14:11 This patient is a 35-year-old 6 para 5 white female currently at 37 weeks plus gestation. She was seen in my clinic on this date and found to be jose dilated to 3 cm and fairly shortly had dilated to 4 cm. She was jose about every 4 to 6 minutes. Ultrasound had demonstrated mild oligohydramnios. Patient denies rupture membranes or bleeding and has no problems with this to date. She had a negative group B strep culture after 35 weeks gestation. Allergies are to penicillin which causes a rash Medications are vitamins Medical social and surgical history is all per the antepartum record HEENT exam is normal Neck is supple no lymphadenopathy no thyromegaly Abdomen is gravid soft nontender nondistended Extremities show no clubbing cyanosis. There is no Homans' sign. Pelvic exam now shows a cervix 5 to 6 cm dilated over 90% effaced -1 station vertex presentation. Amniotomy is performed with release of a small amount of clear to slightly bloody fluid monitor shows a regular contractions as much is every 4-6 or 7 minutes. heart rate pattern is category 1 Assessment and plan 37+ weeks gestation in a multigravid patient with advanced maternal age. She has been spontaneous labor and we are now augmenting with Pitocin amniotomy has per been performed we anticipate a vaginal delivery shortly 37+ weeks gestation in spontaneous labor Allergies and Home Medications Allergies Coded Allergies: Penicillins (Verified Allergy, Unknown, Hives, 05/03/15) Home Medications Citalopram Hydrobromide 20 Mg Tablet, 10 MG PO DAILY, (Reported) Docusate Sodium 100 Mg Capsule, 100 MG PO BID Prescribed by: XANDER COREAS on 10/30/171714 Ibuprofen 800 Mg Tablet, 800 MG PO Q6H Prescribed by: XANDER COREAS on 10/30/171714 Nitrofurantoin Monohyd/M-Cryst 100 Mg Capsule, 1 TAB PO BID Prescribed by: BARBARA MARTÍNEZ on 09/22/172018 Oxycodone HCl/Acetaminophen 1 Each Tablet, 1-2 TAB PO Q4HR PRN for PAIN-MODERATE TO SEVERE Prescribed by: XANDER COREAS on 10/30/171714 Vit/Fe Fumarate/Fa 1 Each Tablet, 1 EACH PO DAILY, (Reported) Patient Home Medication List Home Medication List Reviewed: Yes XANDER YEN MD Aug 31, 2020 14:14
[2020-08-31] MEDS ORDERED: OXYC1TAB87 PO (14:19)
[2020-08-31] MEDS ORDERED: IBUP-1780 PO (14:19)
[2020-08-31] MEDS ORDERED: DOCU100C37 PO (14:19)
--- NOTE | 2020-08-31 14:20 | Discharge Inst-Surgical ---
Discharge Inst-Surgical Depart Medication/Instructions New, Converted or Re-Newed RX: RX on Chart Consults/Follow Up Patient Instructions: As directed Orders & Referrals Follow Up Appt: Call to make follow up appt. for patient in 4 weeks. Activity Per routine post vaginal delivery instructions. Please call in RX to patient pharmacy. Diet as tolerated Patient may shower or tub bathe as desired. Activity Activity as Tolerated: No Diet Discharge Diet: No Restrictions XANDER YEN MD Aug 31, 2020 14:20
--- NOTE | 2020-08-31 17:17 | NUR ---
spontaneous vaginal delivery of male by dr peterson compound presentation noted with left hand/arm presenting upalong side th head. arm delivered without difficulty followed with uncomplicated delivery of shoulders and body. dried and stimulated by dr peterson. 1718 cord clamped following cessation of pulsation by dr peterson. 1719 cord cut by s/o. placed to mothers abdomen by dr peterson. 1720 cord [address]s collected by dr peterson. 1721 dr peterson remains at perineum assessing perineum , vaginal flow while anticipating delivery of placenta. 1723 spontaneous vaginal delivery of intact placenta sent to lab per dr orders. pitocin increased to 60 cc/hr per pp orders. 1724 betadine applied to perineum by dr peterson. ebl 150cc. no repairs. 1725 fundal massage by this RN. U/2-3 light flow noted no clots expressed. 1727 pericare performed by this RN. vpad to perineum. 1728 assisted out of stirrups[facility]
--- NOTE | 2020-08-31 17:40 | NUR ---
fundal massage performed by this RN. light flow no clots expressed. u/2.
--- NOTE | 2020-08-31 17:45 | NUR ---
infant at breast actively . fresh ice water placed at bedside. reviewed diet order. denies further need or concerns at this time. continuing to monitor.
--- NOTE | 2020-08-31 18:15 | NUR ---
fundal massage by this RN. 350 cc of clots, and bleeding in 1 hour recovery period. pericare performed, new vpad to perineum. 1825 sitting up eating dinner tray. denies need. ffu/1. s/o at bedside.
[2020-08-31] MEDS ORDERED: TETANUS,DIPTH,PERTUSS P/F (BOOSTRIX) 0.5 ML VIAL IM ONE (19:00)
[2020-08-31] MEDS ORDERED: BENZOCAINE/MENTHOL (DERMOPLAST) 60 ML CAN TP PRN (19:00)
[2020-08-31] MEDS ORDERED: ONDANSETRON 4 MG/2 ML (SDV) Z0FRAN IVP PRN (19:00)
[2020-08-31] MEDS ORDERED: MEASLES,MUMPS,RUBELLA 1 EA INJ SC ONE (19:00)
[2020-08-31] MEDS ORDERED: oxyCODONE/APAP 5/325MG (PERCOCET 5) TABLET PO PRN (19:00)
[2020-08-31] MEDS: DOCUSATE SODIUM 100 MG (COLACE) CAP PO SCH (19:45)
[2020-08-31] MEDS: KETOROLAC 30 MG/ML VIAL IVP SCH (19:45)
--- NOTE | 2020-08-31 19:45 | NUR ---
Scheduled meds given. VSS. Fundal massage by this RN. FFU/-1 with light light-moderate rubra lochia, no clots expressed. Pt ambulates to bathroom with standby assist, + void. Pericare provided, fresh vpad, gown, and underwear. 1 cm clot expressed. Pt denies any needs at this time
--- NOTE | 2020-08-31 20:45 | NUR ---
Pt up to bathroom with + void. Light rubra lochia noted, 1 3cm clot expressed with void. Pericare provided, fresh vpad, gown, and underwear applied. Pt denies any dizziness with ambulation
--- NOTE | 2020-08-31 20:50 | NUR ---
Pt ambulates to room 311 with infant, S.O, and all personal belongings. Denies any dizziness with ambulation. Pt oriented to PP room, PP packet explained. 2054- assessment completed, see intervention. Pt denies any needs or concerns at this time
[2020-09-01 00:05] VITALS: BP 108/68
--- NOTE | 2020-09-01 01:04 | OPERATIVE REPORT ---
DATE OF SERVICE: 08/31/2020 DELIVERY NOTE The patient delivered by term spontaneous vaginal delivery a viable male with Apgars of 8 and 9 at 1 and 5 minutes respectively, weight of 6 pounds and 15 ounces. time of 17:17 and a cord blood pH of 7.20. The was delivered over an intact perineum under no analgesia. The infant was bulb suctioned on delivery of the head and again on completion of delivery. There was a nuchal cord that was relatively tight. It was just slipped over the shoulders and the baby delivered through the loop. The was bulb suctioned again on completion of delivery. Umbilical cord when pulseless was doubly clamped, the father cut the cord, the baby was passed to mom's abdomen. Cervix, vagina, rectum, and perineum were examined and found intact. There was a minimal abrasion on the posterior fourchette and perineal body. It was superficial, hemostatic, and required no repair. Sponge and needle counts were correct on completion of the delivery and the post-delivery inspection. The patient tolerated the delivery well and remained in the LDR for recovery. The baby remained with the mom. Job ID: [id number] DocumentID: [id number] Dictated Date: 08/31/2020 17:52:22 Tool Tender Date: 09/01/2020 01:04:18 Dictated By: XANDER YEN MD MTDD
[2020-09-01] MEDS: KETOROLAC 30 MG/ML VIAL IVP SCH ×2 (02:06→07:59)
[2020-09-01 03:56] VITALS: BP 126/74
[2020-09-01 07:58] VITALS: BP 126/76
[2020-09-01] MEDS: DOCUSATE SODIUM 100 MG (COLACE) CAP PO SCH ×2 (07:59→19:54)
--- NOTE | 2020-09-01 10:09 | NUR ---
Dr. Shepard here to see pt. Pt may discharge today if desired, but plan for tomorrow.
--- NOTE | 2020-09-01 10:28 | Progress Note ---
Standard Progress Note Progress Notes/Assess & Plan Date Seen by a Provider: Sep 01, 2020 Time Seen by a Provider: 10:27 Progress/Assessment & Plan This patient is without complaint. She is ambulating, voiding, tolerating oral intake well and has good pain control. Patient denies chest pain, denies shortness of breath, denies nausea vomiting, and denies headache. Vital Signs 09/01/20 07:58 Temp 36.2 Pulse 64 Resp 18 B/P (MAP) 126/76 (93) Pulse Ox 99 O2 Delivery Room Air Vital signs are stable. Patient is afebrile. Fundus is firm below the umbilicus and nontender. Extremities show no clubbing or cyanosis. There is no Homans' sign. Assessment and plan day #1 status post term spontaneous vaginal delivery at 37 plus weeks gestation. Patient is doing well and will have routine convalescent care Final Diagnosis 37-week spontaneous vaginal delivery XANDER YEN MD Sep 01, 2020 10:28
[2020-09-01 12:20] VITALS: BP 125/69
[2020-09-01] MEDS ORDERED: IBUPROFEN 800 MG (MOTRIN) TAB PO ONE (14:09)
[2020-09-01] MEDS: IBUPROFEN 800 MG (MOTRIN) TAB PO SCH ×2 (14:15→19:54)
[2020-09-01 16:15] VITALS: BP 118/65
[2020-09-01 19:50] VITALS: BP 110/61
[2020-09-02 01:34] VITALS: BP 113/64
[2020-09-02] MEDS: IBUPROFEN 800 MG (MOTRIN) TAB PO SCH ×2 (01:34→08:19)
[2020-09-02 08:16] VITALS: BP 124/73
[2020-09-02] MEDS: DOCUSATE SODIUM 100 MG (COLACE) CAP PO SCH (08:19)
--- NOTE | 2020-09-02 11:17 | Progress Note ---
Standard Progress Note Progress Notes/Assess & Plan Date Seen by a Provider: Sep 02, 2020 Time Seen by a Provider: 11:16 Progress/Assessment & Plan This patient is without complaint. She is ambulating, voiding, tolerating oral intake well and has good pain control. Patient denies chest pain, denies shortness of breath, denies nausea vomiting, and denies headache. Vital Signs 09/01/20 07:58 Temp 36.2 Pulse 64 Resp 18 B/P (MAP) 126/76 (93) Pulse Ox 99 O2 Delivery Room Air Vital signs are stable. Patient is afebrile. Fundus is firm below the umbilicus and nontender. Extremities show no clubbing or cyanosis. There is no Homans' sign. Assessment and plan day #1 status post term spontaneous vaginal delivery at 37 plus weeks gestation. Patient is doing well and will have routine convalescent care September 02, 2020 Patient is without complaint. She is ambulating, voiding, tolerating oral intake well and has good pain control. Patient is requesting discharge home. Vital Signs Date Time Temp Pulse Resp B/P (MAP) Pulse Ox O2 Delivery O2 Flow Rate FiO2 09/02/20 08:16 36.5 124/73 (90) 09/02/20 01:34 36.5 70 18 113/64 (80) 98 Room Air 09/01/20 19:50 36.6 71 18 110/61 (77) 97 Room Air 09/01/20 16:15 36.4 73 18 118/65 (82) Room Air 09/01/20 12:20 36.7 71 18 125/69 (87) 99 Room Air Vital signs are stable. Patient is afebrile. Fundus is firm below the umbilicus and nontender. Extremities show no clubbing or cyanosis. There is no Homans' sign. Assessment and plan day #2 status post term spontaneous vaginal labor at 37+ weeks gestation. Patient is doing well and will be discharged home Final Diagnosis 37-week spontaneous vaginal delivery XANDER YEN MD Sep 02, 2020 11:17
--- NOTE | 2020-09-02 11:35 | NUR ---
Discharge instructions explained to pt with copy provided to pt along with narcotic prescription. Discussed calling in Ibuprofen and colace, pt denies, states she has some at home. Pt notified of need to schedule follow up appt.Pt verbalizes understanding of instructions and signs to verify. No questions or concerns voiced.
--- NOTE | 2020-09-02 12:55 | NUR ---
Pt ambulates off unit to private vehicle with all personal belongings, accompanied by S.O., , and OB RN. No s/s of distress noted.
== END 2020-09-02 12:55 | disposition home or self-care (01) | DRG 807 ==
LOC: LDRP 10:23
PROVIDERS: ADMIT Obstetrics & Gynecology; ATTEND Obstetrics & Gynecology
PROC: 10E0XZZ Delivery of Products of Conception, External Approach (ICD-10-PCS; principal; 2020-08-31)
DX: O41.03X0 Oligohydramnios, third trimester, not applicable or unspecified (principal); Z37.0 Single live birth; Z3A.37 37 weeks gestation of pregnancy; O71.82 Other specified trauma to perineum and vulva; Z20.822 Contact with and (suspected) exposure to COVID-19
CPT/HCPCS: 36415; 85025; 86850; 86900; 86901; 87635

== ENCOUNTER 2020-10-25 06:38 | Day surgery (SDC) | payer OTHER ==
[2020-10-25] VITALS (11 sets, daily range): BP systolic 100–119; BP diastolic 65–85
[~2020-10-25] VITALS: Ht 175 cm; Wt 72.0 kg
[~2020-10-25 06:38] MED LIST changes: +OXYC1TAB87 PO
[2020-10-25] MEDS ORDERED: fentaNYL INJ 100 MCG/2 ML AMP ONE (07:02)
[2020-10-25] MEDS ORDERED: MIDAZOLAM 2 MG/2 ML (VERSED) VIAL ONE (07:03)
[2020-10-25] MEDS ORDERED: LIDOCAINE PF 2% 5 ML (XYLOCAINE) VIAL ONE (07:05)
[2020-10-25] MEDS ORDERED: proPOfol 200 MG/20 ML (DIPRIVAN) VIAL IV ONE (07:05)
[2020-10-25] MEDS ORDERED: ONDANSETRON 4 MG/2 ML (SDV) Z0FRAN ONE (07:05)
[2020-10-25] MEDS ORDERED: SEVOFLURANE (ULTANE) 15 ML INHAL SOLN ONE (07:06)
[2020-10-25] MEDS ORDERED: VENL37.52 PO (07:09)
[2020-10-25] MEDS ORDERED: OMEP2.5S2 PO (07:09)
--- NOTE | 2020-10-25 07:27 | Progress Note-Pre Operative ---
Pre-Operative Progress Note H&P Reviewed The H&P was reviewed, patient examined and no changes noted. Date Seen by Provider: Oct 25, 2020 Time Seen by Provider: 07: Date H&P Reviewed: Oct 25, 2020 Time H&P Reviewed: 07:27 Pre-Operative Diagnosis: Menometrorrhagia/intrauterine mass XANDER YEN MD Oct 25, 2020 07:27
--- NOTE | 2020-10-25 07:28 | Progress Note-Post Operative ---
Post-Operative Progess Note Surgeon (s)/Temple Marker (s) Surgeon XANDER YEN MD Temple Marker: NO Pre-Operative Diagnosis Menometrorrhagia/intrauterine mass Post-Operative Diagnosis Same with pathology pending Procedure & Operative Findings Date of Procedure 10/25/20 Procedure Performed/Findings Hysteroscopy with D&C Anesthesia Type GETA Estimated Blood Loss Estimated blood loss (mL): 50CC Specimens/Packing Specimens Removed Uterine contents/endometrial curettings XANDER YEN MD Oct 25, 2020 07:28
[2020-10-25] MEDS ORDERED: LACTATED RINGERS 1,000 ML IV PRN (07:30)
[2020-10-25] MEDS ORDERED: oxyCODONE/APAP 5/325MG (PERCOCET 5) TABLET PO PRN (07:30)
[2020-10-25] MEDS ORDERED: fentaNYL INJ 100 MCG/2 ML AMP IVP PRN (07:30)
[2020-10-25] MEDS ORDERED: D5 LR IV SOLUTION 1,000 ML IV SCH (07:30)
[2020-10-25] MEDS ORDERED: KETOROLAC 30 MG/ML VIAL IVP ONE (07:30)
[2020-10-25] MEDS ORDERED: ESTROGENS CONJ INJECTION 25 MG in WATER (STERILE) FOR INJECTION 5 ML IV ONE (07:30)
[2020-10-25] MEDS ORDERED: ONDANSETRON 4 MG/2 ML (SDV) Z0FRAN IVP PRN (07:30)
--- NOTE | 2020-10-25 07:31 | Discharge Inst-Surgical ---
Discharge Inst-Surgical Depart Medication/Instructions New, Converted or Re-Newed RX: RX on Chart Consults/Follow Up Patient Instructions: As directed Orders & Referrals Follow Up Appt: Call to make follow up appt. for patient in 2 weeks. Activity: Rest for 24 hours, than as tolerated. Diet: As tolerated May use [id number] pain medication/Tylenol/Motrin as needed May shower or tub bathe as desired. No driving for 24 hours, no alcoholic beverages for 24 hours, and nothing per vagina (no tampons, douching, or intercourse) for 2 weeks. Patient to return to the clinic as soon as possible for: Temperature greater than 101F, Severe Pain, Foul discharge from incision or vagina, Excessive Bleeding (more than a period). Activity Activity as Tolerated: No Diet Discharge Diet: No Restrictions XANDER YEN MD Oct 25, 2020 07:31
[2020-10-25] MEDS ORDERED: KETOROLAC 30 MG/ML VIAL ONE (08:02)
--- NOTE | 2020-10-25 08:38 | OPERATIVE REPORT ---
DATE OF SERVICE: 10/25/2020 PREOPERATIVE DIAGNOSIS: Menometrorrhagia. POSTOPERATIVE DIAGNOSIS: Menometrorrhagia. OPERATIVE PROCEDURE: Hysteroscopy with directed biopsy. Removal of intrauterine mass and D and C. OPERATIVE DESCRIPTION: With the patient in the supine position under satisfactory general anesthesia, she was repositioned in dorsal lithotomy position in the Jarred stirrups and prepped and draped in the usual fashion. She was positioned in the dorsal lithotomy position in the [facility] [place]ups, prepped and draped in the usual fashion for vaginal surgery. Weighted speculum placed in posterior fornix of vagina, cervix exposed and grasped anteriorly with single tooth tenaculum. Uterus sounded to 9 cm with uterine sound. The cervix was then serially dilated with Stevie dilators to a #20 Stevie and then a #9 Hegar dilator was the last step in dilation. Hysteroscope was introduced and using LR as a distending medium, the endometrial cavity was examined. There was a large exophytic mass occupying the posterior surface of the uterus. This mass was unattached and moved freely in the uterine cavity. Had an appearance of fibrous dense tissue with also areas of blood clot and debris. The hysteroscope was removed. A polyp forceps was introduced and this mass was grasped and extracted intact. The endometrial cavity was then sharply curettaged in all 4 quadrants with removal of large amount of necrotic and fibrotic appearing tissue, blood clot and debris. The hysteroscope was reintroduced, endometrial cavity was examined. There was no remaining abnormal pathology. There was no significant bleeding. The hysteroscope was removed as was the tenaculum. There was some bleeding from the puncture sites on the anterior lip of the cervix. This was touched with silver nitrate to effect hemostasis. With hemostasis assured, sponge and needle counts correct. Blood loss was minimal. The procedure was terminated. The operative specimen sent to pathology for permanent section. The patient was now uneventfully awakened from her general anesthesia and transferred to recovery room in stable condition with plans for discharge home PAR. Job ID: [id number] DocumentID: [id number] Dictated Date: 10/25/2020 08:05:27 Mortgage Broker Date: 10/25/2020 08:38:19 Dictated By: XANDER YEN MD [facility]
--- NOTE | 2020-10-25 08:56 | Anesthesia-General Post-Op ---
General Patient Condition Mental Status/LOC: Same as Preop Cardiovascular: Satisfactory Nausea/Vomiting: Absent Respiratory: Satisfactory Pain: Controlled Complications: Absent Post Op Complications Complications None Follow Up Care/Instructions Patient Instructions None needed. Anesthesia/Patient Condition Patient Condition Patient is doing well, no complaints, stable vital signs, no apparent adverse anesthesia problems. No complications reported per nursing. TATIANA SANDHU CRNA Oct 25, 2020 08:56
== END 2020-10-25 10:15 ==
LOC: SDC 06:38
PROVIDERS: ATTEND Obstetrics & Gynecology
DX: N93.9 Abnormal uterine and vaginal bleeding, unspecified (principal); N92.1 Excessive and frequent menstruation with irregular cycle; K21.9 Gastro-esophageal reflux disease without esophagitis; N85.8 Other specified noninflammatory disorders of uterus; Z88.0 Allergy status to penicillin; Z79.899 Other long term (current) drug therapy
CPT/HCPCS: 84703; 87081; 88305

== ENCOUNTER → 2021-09-06 | Outpatient (CLI) | payer OTHER ==
[~2021-09-06] MED LIST changes: +OMEP2.5S2 PO; +VENL37.52 PO
--- NOTE | 2021-09-06 09:01 | Diagnostic Imaging Report ---
PROCEDURE: Pelvic complete, transabdominal and transvaginal sonogram. Limited pelvic doppler. TECHNIQUE: Multiple real-time grayscale images were obtained of the pelvis in various projections transabdominally and transvaginally. Limited pelvic duplex images were obtained. HISTORY: Amenorrhea COMPARISON: 11/24/2015 FINDINGS: Uterus: The uterus is retroverted and measures 7.5 x 6.0 x 4.5 cm. The myometrium is homogeneous without fibroids. Endometrium: There is fluid within the endometrial cavity with a 2.1 x 1.5 x 1.8 cm echogenic filling defect seen within the endometrial cavity. There are a few calcifications seen along the endometrial margin. Adnexa: Both ovaries have a normal physiologic appearance. The right ovary measures 3.3 x 2.1 x 3.2 cm and the left ovary measures 2.9 x 1.4 x 2.1 cm. Duplex images reveal normal vascular flow to both ovaries. Other: There is no free fluid within the pelvis. IMPRESSION: 1. A 2.1 cm echogenic filling defect within the endometrial cavity. This is indeterminate and could represent a submucosal fibroid, polyp, or tumefactive debris. Consider further evaluation with saline infused sonohysterogram. Dictated by: Dictated on workstation # [id number]
== END ==
LOC: RAD 07:55
PROVIDERS: ATTEND Family Medicine
DX: R10.2 Pelvic and perineal pain (principal); R93.89 Abnormal findings on diagnostic imaging of other specified body structures
CPT/HCPCS: 76830; 76856

== ENCOUNTER → 2022-05-19 | Outpatient (CLI) | payer OTHER ==
--- NOTE | 2022-05-19 20:02 | Diagnostic Imaging Report ---
TECHNIQUE: Focused ultrasound of the right inguinal region was performed. COMPARISON: 06/16/2019. REASON FOR EXAM: Right groin pain. FINDINGS: There is an area of soft tissue fullness in the right inguinal region which enlarges during Valsalva maneuver and measures 3.2 x 1.2 x 2.7 cm. No evidence of peristalsis is seen within this focus. IMPRESSION: 1. Findings suggestive of a fat-containing right inguinal hernia. No evidence of entrapped loops of bowel are seen. This has occurred since the prior exam from 2018. Recommend correlation with physical exam. Dictated by: Dictated on workstation # [id number]
== END ==
LOC: RAD 12:00
PROVIDERS: ATTEND Nurse Practitioner Family
DX: R10.31 Right lower quadrant pain (principal)
CPT/HCPCS: 76881